=== PATIENT | female | born 1995 | race Caucasian/White ===

== ENCOUNTER 2020-04-12 01:19 | Observation (INO) | payer OTHER ==
[~2020-04-12] VITALS: Ht 160 cm; Wt 65.3 kg
[2020-04-12 01:21] VITALS: Ht 160 cm; Wt 65.3 kg
--- NOTE | 2020-04-12 01:51 | NUR ---
PT BIB [facility] WITH C/O SOB. PT STATES THAT SHE WAS AT HOME AND BEGAN EXPERIENCING AN ASTHMA ATTACK. PT HAS A HISTORY OF ASTHMA AND HAS A PRESCRIBED ALBUTEROL INHALER. PT STATES "I TOOK IT 50 TIMES AND IT DIDNT WORK" PT IS TACHYCARDIC AT A RATE OF 119. PT DENIES ANY CHEST PAIN AT THIS TIME. PT IS AAOX4, RESPIRATIONS ARE EQUAL BUT SLIGHTLY TACYPNIC AT 23-[address] GRIMES BEDSIDE TO COMPLETE MSE.
--- NOTE | 2020-04-12 02:01 | NUR ---
PT JUST INFORMED THAT SHE TOOK APPROX 4-5 GRAMS OF COCAINE AND 4 XANAX BARS YESTERDAY. PT STATED SHE DIDNT INFORM THE MEDICS.
[2020-04-12 03:33] LABS: BASOPHIL % 0.3 % (0.2-1.3); PLATELET COUNT 304 x10^3mcL (179-408)
[2020-04-12 03:37] LABS: RED CELL DISTRIBUTION WIDTH 15.9 % (12.3-17.7)
[2020-04-12 03:45] LABS: CALCIUM 8.4 mg/dL (8.5-10.1); CHLORIDE SERUM 105 mmol/L (98-107); GFR1 > 60 mL/min; GLUCOSE SERUM 112 mg/dL (74-106); POTASSIUM SERUM 3.6 mmol/L (3.5-5.1); SODIUM SERUM 140 mmol/L (136-145)
[2020-04-12 03:55] LABS: ALBUMIN 3.6 g/dL (3.4-5.0); ALKALINE PHOSPHATASE 90 U/L (46-116); ALT/SGPT 21 U/L (14-59); AST/SGOT 13 U/L (15-37); BILIRUBIN TOTAL 0.54 mg/dL (0.20-1.00); TOTAL PROTEIN, SERUM 7.6 g/dL (6.4-8.2)
--- NOTE | 2020-04-12 04:00 | NUR ---
PT IS SIDE LYING IN [facility], BREATHING IS RAPID AND DEEP. PT IS DIAPHORETIC AND TACHYCARDIC. EKG COMPLETED AND GIVEN TO DR. GRIMES. PT DENIES ANY PAIN OR DIFFICULTY BREATHING. JUST STATES SHE IS TIRED. WILL CONTINUE TO MONITOR.
[2020-04-12 05:42] VITALS: BP 119/66
--- NOTE | 2020-04-12 06:46 | NUR ---
PT IS SIDE LYING IN GURNEY WITH EYES CLOSED. PT BREATHING CONTINUES TO BE SHALLOW AND RAPID, PT DENIES ANY PAIN AT THIS TIME. WILL CONTINUE TO MONITOR.
--- NOTE | 2020-04-12 07:05 | NUR ---
PT MEDICATED PER MD ORDER. SEE EMAR.
--- NOTE | 2020-04-12 07:31 | NUR ---
GAVE REPORT TO IMELDA LARKIN TO ASSUME CARE OF PT.
--- NOTE | 2020-04-12 08:04 | NUR ---
PT RESTING IN BED, AROUSABLE, AAO, V/S STABLE, ON FULL MARKETING SECRETARY, BED IN LOW POSITION AND LOCKED, BOTH SIDE RAILS UP, CALL LIGHT WITHIN REACH.
--- NOTE | 2020-04-12 08:08 | NUR ---
PT SITTING UP EATING BREAKFAST.
--- NOTE | 2020-04-12 08:10 | NUR ---
IV IN RIGHT FOREARM FLUSHED WITH 10mL NS, GOOD BLOOD RETURN, NO COMPLICATIONS.
--- NOTE | 2020-04-12 08:42 | NUR ---
CALLED PHARMACY FOR 0900 MEDS NOT IN [facility]. WILL BE READY IN 20 MIN
--- NOTE | 2020-04-12 10:08 | NUR ---
PT MEDICATED PER MD ORDER
--- NOTE | 2020-04-12 11:30 | NUR ---
PT NOTED TO HAVE RETRACTIONS OF THE NECK AND CLAVICLES, SpO2 AT 95% ON 2L/min VIA NC, RESP AT 28, PT STATES "I FEEL A SHORT OF BREATH," WILL MEDICATE WITH ORDERED SOLU-MEDROL 40mg IVP, AND WILL NOTIFY RT FOR SCHEDULED BREATHING Tx.
--- NOTE | 2020-04-12 11:43 | NUR ---
PROVIDED PT BEDSIDE COMMODE
--- NOTE | 2020-04-12 11:55 | NUR ---
PT HAS PARTIALLY REMOVED CAST ON RIGHT WRIST, PT REPORTS HAVING SUSTAINED A Fx 1 WEEK AGO AND STATES "I REMOVED THE CAST BECAUSE IT WAS IRRITATING," PT REQUESTS TO REMOVED THE REST OF THE CAST.
--- NOTE | 2020-04-12 11:56 | NUR ---
DR. BERGMAN AT BEDSIDE, PT MEDICATED PER MD ORDER, PROVIDED ASTHMA EDUCATION AND CESSATION OF COCAINE USE, PT REPORTS COCAINE USE DAILY.
--- NOTE | 2020-04-12 12:00 | NUR ---
CALLED RT FOR BREATHING Tx
--- NOTE | 2020-04-12 12:34 | NUR ---
PT SITTING UPRIGHT IN BED, PT STATES "I FEEL MUCH BETTER," BED IN LOW POSITION AND LOCKED, BOTH SIDE RAILS UP, CALL LIGHT WITHIN REACH, AAO, V/S STABLE, IN NAD AT THIS TIME, NO RETRACTIONS NOTED, SpO2 AT 98% 4L/min VIA NC, RESP 22, ON FULL RETAIL ROUTE SUPERVISOR.
--- NOTE | 2020-04-12 14:52 | NUR ---
PT RESTING IN BED, IN NAD AT THIS TIME, AAO, V/S STABLE, BED IN LOW POSITION AND LOCKED, CALL LIGHT WITHIN REACH, ON FULL CHIMNEY SUPERVISOR BRICK, RIGHT SIDE RAIL UP.
--- NOTE | 2020-04-12 15:56 | NUR ---
PT RESTING IN BED, IN POSITION OF COMFORT, IN NAD AT THIS TIME, V/S STABLE, ON FULL NETWORK SECURITY CONSULTANT.
--- NOTE | 2020-04-12 17:06 | NUR ---
PT AMBULATED TO BEDSIDE COMMODE, PT STATES "I FEEL MUCH BETTER THAN EARLIER," RESP 21, PT REMOVED O2 TO VOID, SpO2 AT 95% RA, AFTER VOIDING PT PLACED BACK ON FULL ONCOLOGY NURSE, O2 TITRATED TO 2L/min, SpO2 AT 97%, RESP 16, LUNG SOUNDS INSPIRATORY AND EXPIRATORY WHEEZING PRESENT, IMPROVED FROM MORNING ASSESSMENT.
--- NOTE | 2020-04-12 18:07 | NUR ---
PT LAYING IN BED WATCHING PERSONAL PHONE, IN NAD AT THIS TIME, CONTACTED RT FOR BREATHING Tx.
--- NOTE | 2020-04-12 18:23 | NUR ---
PT SITTING HIGH FOWLERS EATING DINNER THAT FAMILY BROUGHT IN. NO APPARANT DISTRESS AT THIS TIME. PT SLIGHTLY ST AT 121 WITH EXERTION. 02 SAT 95%
--- NOTE | 2020-04-12 18:43 | NUR ---
CONTACTED RT FOR FOLLOW UP ON BREATHING Tx, WAS TOLD "YOU CALLED 30 MINUTES AGO, RADIATION CONTROL WORKER WILL HANDLE IT."
--- NOTE | 2020-04-12 19:21 | NUR ---
REPORT GIVEN TO YAIR LARKIN
--- NOTE | 2020-04-12 19:25 | NUR ---
RECEIVED REPORT FROM IMELDA LARKIN. PT NOTED RESTING IN POSITION OF COMFORT. NO ACUTE DISTRESS NOTED. BREATHING EVEN AND UNLABORED. SAFETY MEASURES IN PLACE. GURNEY IN LOWEST POSITION. FULL CM AND O2 MONITOR IN PLACE. NO APPARENT CHANGES AT THIST TIME.
--- NOTE | 2020-04-12 20:30 | NUR ---
PT RESTING IN GURNEY. NO ACUTE DISTRESS NOTED. BREATHING EVEN AND UNLABORED. PT DENIES PAIN OR DISCOMFORT NOTED. NO APPARENT CHANGES NOTED AT THIS TIME.
--- NOTE | 2020-04-12 21:30 | NUR ---
PT RESTING IN POSITION OF COMFORT. NO ACUTE DISTRESS NOTED. BREATHING EVEN AND UNLABORED. SAFETY MEASURES IN PLACE. NO APPARENT CHANGES NOTED AT THIS TIME.
--- NOTE | 2020-04-12 22:25 | NUR ---
PT RESTING IN [facility]. NO ACUTE DISTRESS NOTED. BREATHING EVEN AND UNLABORED. SAFETY MEASURES IN PLACE. NO APPARENT CHANGES NOTED.
--- NOTE | 2020-04-13 | NUR ---
PT RESTING IN POSITION OF COMFORT. NO ACUTE DISTRESS NOTED. BREATHING EVEN AND UNLABORED. SAFETY MEASURES IN PLACE. NO APPARENT CHANGES NOTED ATH THIS TIME.
--- NOTE | 2020-04-13 01:27 | NUR ---
PT RESTING IN GURNEY, NO ACUTE DISTRESS NOTED. BREATHING EVEN AND UNLABORED. GURNEY IN LOWEST POSITION. SAFETY MEASURES IN PLACE. NO APPARENT CHANGES NOTED AT THIS TIME.
--- NOTE | 2020-04-13 02:08 | NUR ---
REPORT GIVEN TO CLARISA LARKIN
--- NOTE | 2020-04-13 02:08 | NUR ---
REPORT FROM YAIR LARKIN. CLARISA LARKIN ASSUMING CARE FOR PATIENT
--- NOTE | 2020-04-13 03:32 | NUR ---
WOKE PATIENT UP. PATIENT ALERTX4, SKIN PINK WARM AND DRY. RR 20 AND UNLABORED.
--- NOTE | 2020-04-13 04:25 | NUR ---
PATIENT WANTS TO AMA. DR. KWOK AWARE. DOCTOR THOM IN ER OKAY TO SIGHN AMA FORM FOR PATIENT. PATIETNT MADE AWARE BY HER LEAVING IT COULD LEAD TO HER OWN . PATIENT IS ALERTX4, AWAKE, SKIN PINK WARM AND DRY AND AKNOLWLEGES THIS RISK OF LEAVING.
[2020-04-13 04:34] VITALS: BP 113/81
== END 2020-04-13 04:30 | disposition left against medical advice (07) ==
LOC: ED 01:19 → DU 04:14
PROVIDERS: Emergency Medicine; ADMIT Internal Medicine; ATTEND Internal Medicine
DX: J96.01 Acute respiratory failure with hypoxia (principal); J45.901 Unspecified asthma with (acute) exacerbation; Z20.828 Contact with and (suspected) exposure to other viral communicable diseases
CPT/HCPCS: 36600; G0378; J1650; J2930; J7030; U0003